=== PATIENT | female | born 1990 | race African-American/Black ===

== ENCOUNTER 2022-01-08 06:52 | Emergency (ER) | payer SELFPAY ==
[~2022-01-08] VITALS: Ht 165.1 cm; Wt 75.0 kg
[2022-01-08] MEDS ORDERED: ULTRAM 50MG50 MG PO (07:28)
[2022-01-08] MEDS ORDERED: AUGMENTIN 500-1 EACH PO (07:28)
[2022-01-08] MEDS ORDERED: HYDROCODONE/APAP 5MG-325MG TAB PO ONE (07:30)
== END 2022-01-08 07:35 | disposition home or self-care (01) ==
LOC: FSED 07:22
DX: K08.89 Other specified disorders of teeth and supporting structures (principal); F17.210 Nicotine dependence, cigarettes, uncomplicated
CPT/HCPCS: 99283